=== PATIENT | female | born 1995 | race Caucasian/White ===

== ENCOUNTER 2016-08-08 18:14 | Emergency (ER) | payer OTHER ==
[~2016-08-08] VITALS: Ht 160 cm; Wt 68.0 kg
[~2016-08-08 18:14] MED LIST: CIPRO500 M1 PO; ZANTAC 150MG150 MG PO
[2016-08-08 18:17] VITALS: BP 120/75
--- NOTE | 2016-08-08 18:40 | ED UPPER/LOWER EXTREMITY COMPL ---
History of Present Illness General Chief Complaint: Upper Extremity Problem Stated Complaint: L ELBOW PAIN Source: patient Exam Limitations: no limitations Vital Signs & Intake/Output Vital Signs & Intake/Output Vital Signs Date Time Temp Pulse Resp B/P B/P Pulse O2 O2 Flow FiO2 Mean Ox Delivery Rate 08/08 1817 97.1 88 16 120/75 98 Room Air Allergies Coded Allergies: NO KNOWN ALLERGIES (07/24/15) Triage Note: PT STATES THAT SHE WORKED FOR [employer] AND FRIDAY SHE HIT HER L ELBOW ON A TOTE. FILLED OUT PAPERWORK YESTERDAY AT WORK AND HAS FULL ROM . JUST WOULD LIKE IT LOOKED AT Triage Nurses Notes Reviewed? yes Onset: Gradual Duration: day(s): (2) Timing: no prior history Severity: moderate Severity Numbers: 5 Pain/Injury Location: Left: Elbow. Method of Injury: direct blow Modifying Factors: Improves With: immobilization. Worsens With: movement. : No Patient currently breastfeeds: No HPI: Patient is a 21-year-old female presenting to the emergency department with chief complaint of bruising and pain and swelling to left elbow after she accidentally hit it while at work 2 days ago. Pain is currently moderate achy throbbing worse with range of motion and palpation. She has been icing with some relief. No numbness or tingling. Denies radiation of the pain. Denies any other injury. (MARIA VICTORIA HONEYCUTT) Reconcile Medications No Known Home Medications (KAT LONGO MD) Past History Travel History Traveled to [place] past 21 day No Medical History Any Pertinent Medical History? see below for history Neurological: NONE EENT: NONE Cardiovascular: NONE Respiratory: NONE Gastrointestinal: GERD Hepatic: NONE Renal: NONE Musculoskeletal: NONE Psychiatric: NONE Endocrine: NONE Blood Disorders: NONE Cancer(s): NONE Tetanus Vaccine: 03/12/14 Surgical History Surgical History: N Psychosocial History What is your primary language Serbian Tobacco Use: Never used ETOH Use: denies use Illicit Drug Use: denies illicit drug use Family History Hx Contributory? No (MARIA VICTORIA HONEYCUTT) Review of Systems Review of Systems Constitutional: Reports: no symptoms. Comments Review of systems: See HPI, All other systems negative. Constitutional, no chills fever or weight loss HEENT: No visual changes no sore throat no congestion Cardiovascular: No chest pain ,palpitation Skin, no jaundice no rashes Respiratory: No dyspnea cough : No dysuria No hematuria Muscle skeletal: no back pain, no neck pain, Neurologic: No numbness Immunology: No splenectomy or history of AIDS (SHERMAN ESCALERA,MARIA VICTORIA) Physical Exam Physical Exam General Appearance: well developed/nourished, no apparent distress, alert, awake , comfortable Comments: Well-developed well-nourished person in no acute distress HEENT: . Nose is atraumatic. Neck: Normal inspection Back: Nontender Cardiovascular: Pupils are 2+ bilaterally. Respiratory: . No respiratory distress.speaking in full sentences. Abdomen: Soft, nontender nondistended, no appreciable organomegaly. Normal bowel sounds. No ascites Extremity: No edema appreciated to the left upper extremity, radial pulses are 2 + bilaterally. Full range of motion of left wrist, hand, left elbow, left shoulder without difficulty. Mild tenderness to palpation of the left lateral epicondyle. No pain with left upper extremity pronation and supination. Neuro: Alert oriented x3, motor sensory normal any upper extremity bilaterally. Skin: Small area of ecchymosis approximately 2 cm in diameter noted over the left lateral epicondyle, no surrounding erythema or edema appreciated. Psych: Mood and affect is normal, memory and judgment is normal. (SHERMAN ESCALERA,MARIA VICTORIA) Progress Differential Diagnosis: contusion, dislocation, fracture, sprain, tendon injury Plan of Care: Orders Procedure Date/time Status Durable Medical Equipment 08/08 1928 Active Diagnostic Imaging: Viewed by Me: Radiology Read. Discussed w/RAD: Radiology Read. Radiology Impression: PATIENT: AUDI VILLA PRESENT AGE: 21 PATIENT ACCOUNT NO: [id number] : 94 LOCATION: [facility] ORDERING PHYSICIAN: MARIA VICTORIA ESCALERA SERVICE DATE: 08/08/16 EXAM TYPE: RAD - XRY-ELBOW 3 OR MORE VIEWS, L EXAMINATION: XR ELBOW, LEFT CLINICAL INFORMATION: Left elbow pain following injury. COMPARISON: None. TECHNIQUE: AP, lateral, bilateral oblique views of the left elbow. FINDINGS: There is a subtle linear lucency traversing the capitellum of the left elbow. This finding, which is only visualized on one view of the left elbow, is entirely nonspecific and may reflect a small nutrient channel although a nondisplaced fracture within this region cannot be entirely excluded. Otherwise, unremarkable x-ray of the left elbow. No elbow dislocation. No significant elbow joint effusion. IMPRESSION: Subtle linear lucency traversing the capitellum of the left elbow, only visualized on one view of the left elbow. This finding is entirely nonspecific and may reflect a small nutrient channel although an acute nondisplaced fracture within this region cannot be entirely excluded. There is no appreciable dislocation of the left elbow. No significant elbow joint effusion is identified. DICTATED BY: CHANDLER JOSEPH MD DATE/TIME DICTATED:08/08 CARTON STENCILER:TRENTON Comments: Declined pain medication on arrival. Patient informed of x-ray results. Area of concern for fracture. Patient will be treated with long arm splint, sling and orthopedic follow-up. Advised to take [id number] Motrin and Tylenol as directed. She'll return for any worsening symptoms or concerns. (MARIA VICTORIA HONEYCUTT) Departure Departure Time of Disposition: 1917 Disposition: HOME OR SELF CARE Condition: Stable Clinical Impression Primary Impression: Elbow fracture, left Qualifiers: Encounter type: initial encounter Fracture type: closed Qualified Code: S42.402A - Unspecified fracture of lower end of left humerus, initial encounter for closed fracture Referrals: ROSELIA VIERA,RAYNN Calderón (PCP/Family) ENEIDA VIERA,SAMSON Londono Additional Instructions: Follow-up with orthopedics, call to make appointment. Apply ice to affected area. Return sooner for any worsening symptoms or concerns. Take over-the- counter Motrin and Tylenol as directed. Ice 20 minutes at a time. Keep splint on until orthopedic follow-up. They will likely do repeat x-rays in a week or so. Departure Forms: Customer Survey Employee Industrial Accident General Discharge Information (MARIA VICTORIA HONEYCUTT) Departure Prescriptions: Current Visit Scripts No Known Home Medications PA/SUBMARINE WORKER Co-Sign Statement Statement: ED Attending supervision documentation- I saw and evaluated the patient. I have also reviewed all the pertinent lab results and diagnostic results. I agree with the findings and the plan of care as documented in the PA's/SUBMARINE WORKER's documentation. x I have reviewed the ED Record and agree with the PA's/SUBMARINE WORKER's documentation. [] Additions or exceptions (if any) to the PAs/SUBMARINE WORKER's note and plan are summarized below: [] (DONTA VIERA,KAT) Procedures Splinting Location: left elbow Manual Alignment Performed: No Hand-Made Type: orthoglass Splint: long-arm Splint Applied By: splint applied by me Pre-Proc Neuro Vasc Exam: normal Post-Proc Neuro Vasc Exam: normal Progress: Tolerated procedure well. (SHERMAN ESCALERA,MARIA VICTORIA)
--- NOTE | 2016-08-08 19:10 | RADIOLOGY REPORT ---
EXAMINATION: XR ELBOW, LEFT CLINICAL INFORMATION: Left elbow pain following injury. COMPARISON: None. TECHNIQUE: AP, lateral, bilateral oblique views of the left elbow. FINDINGS: There is a subtle linear lucency traversing the capitellum of the left elbow. This finding, which is only visualized on one view of the left elbow, is entirely nonspecific and may reflect a small nutrient channel although a nondisplaced fracture within this region cannot be entirely excluded. Otherwise, unremarkable x-ray of the left elbow. No elbow dislocation. No significant elbow joint effusion. IMPRESSION: Subtle linear lucency traversing the capitellum of the left elbow, only visualized on one view of the left elbow. This finding is entirely nonspecific and may reflect a small nutrient channel although an acute nondisplaced fracture within this region cannot be entirely excluded. There is no appreciable dislocation of the left elbow. No significant elbow joint effusion is identified.
== END 2016-08-08 19:46 ==
LOC: ERH 18:14
DX: S42.402A Unspecified fracture of lower end of left humerus, initial encounter for closed fracture (principal); W22.8XXA Striking against or struck by other objects, initial encounter; Y93.9 Activity, unspecified; Y92.9 Unspecified place or not applicable
CPT/HCPCS: 73080-LT